=== PATIENT | female | born 1945 | race Caucasian/White ===

== ENCOUNTER → 2017-07-31 | Outpatient (CLI) | payer MEDICARE, BC | LOC: MC.RAD 10:17 | DX: Z12.31 Encounter for screening mammogram for malignant neoplasm of breast (principal) ==

== ENCOUNTER → 2018-08-10 | Outpatient (CLI) | payer MEDICARE, BC | LOC: MC.RAD 07:20 | DX: Z12.31 Encounter for screening mammogram for malignant neoplasm of breast (principal) ==

== ENCOUNTER → 2019-10-12 | Outpatient (CLI) | payer MEDICARE, BC | LOC: MC.RAD 08:54 | DX: Z12.31 Encounter for screening mammogram for malignant neoplasm of breast (principal) ==

== ENCOUNTER → 2020-08-07 | Outpatient (CLI) | payer MEDICARE, BC | LOC: COL.RAD 09:02 | DX: M25.552 Pain in left hip (principal) | CPT/HCPCS: J3301; Q9967 ==

== ENCOUNTER → 2020-10-13 | Outpatient (CLI) | payer MEDICARE, BC | LOC: MC.RAD 09:27 | DX: Z12.31 Encounter for screening mammogram for malignant neoplasm of breast (principal) ==

== ENCOUNTER → 2021-07-19 | Outpatient (CLI) | payer MEDICARE, BC | LOC: COL.RAD 09:44 | DX: N28.1 Cyst of kidney, acquired (principal); R16.0 Hepatomegaly, not elsewhere classified ==

== ENCOUNTER → 2021-10-15 | Outpatient (CLI) | payer MEDICARE, BC | LOC: MC.RAD 13:39 | DX: Z12.31 Encounter for screening mammogram for malignant neoplasm of breast (principal) ==

== ENCOUNTER → 2021-11-14 | Outpatient (CLI) | payer MEDICARE, BC | LOC: COL.RAD 12:48 | DX: M76.32 Iliotibial band syndrome, left leg (principal) | CPT/HCPCS: J3301; Q9967 ==

== ENCOUNTER → 2023-07-15 | Outpatient (CLI) | payer MEDICARE, BC | LOC: MHCPAIN 10:34 | DX: M54.50 Low back pain, unspecified (principal); M79.652 Pain in left thigh; Z96.642 Presence of left artificial hip joint; M25.512 Pain in left shoulder; M79.2 Neuralgia and neuritis, unspecified | CPT/HCPCS: G0463 ==

== ENCOUNTER → 2023-07-16 | Outpatient (CLI) | payer MEDICARE, BC | LOC: COL.RAD 14:09 | DX: M47.816 Spondylosis without myelopathy or radiculopathy, lumbar region (principal); M43.16 Spondylolisthesis, lumbar region ==

== ENCOUNTER → 2023-08-26 | Outpatient (CLI) | payer MEDICARE, BC | LOC: MHCPAIN 13:58 | DX: M54.50 Low back pain, unspecified (principal); M51.36 Other intervertebral disc degeneration, lumbar region; M47.816 Spondylosis without myelopathy or radiculopathy, lumbar region; M79.652 Pain in left thigh; M25.512 Pain in left shoulder; M79.2 Neuralgia and neuritis, unspecified | CPT/HCPCS: G0463 ==

== ENCOUNTER → 2023-11-27 | Outpatient (CLI) | payer MEDICARE, BC ==
[~2023-11-27] MED LIST: Iohexol 300 - 10 ML VIAL ONE; Lidocaine PF 2% (20 MG/ML) 2 ML VIAL ONE
== END ==
LOC: MHCPAIN 08:19
DX: M54.16 Radiculopathy, lumbar region (principal); G89.29 Other chronic pain
CPT/HCPCS: J1100; Q9967

== ENCOUNTER → 2023-12-15 | Outpatient (CLI) | payer MEDICARE, BC | LOC: MHCPAIN 12:45 | DX: M54.50 Low back pain, unspecified (principal); M25.552 Pain in left hip; Z96.642 Presence of left artificial hip joint | CPT/HCPCS: G0463 ==

== ENCOUNTER → 2024-02-19 | Outpatient (CLI) | payer MEDICARE, BC ==
[~2024-02-19] MED LIST changes: -Iohexol 300 - 10 ML VIAL ONE; +Lidocaine PF 1% (10 MG/ML) 5 ML VIAL ONE; -Lidocaine PF 2% (20 MG/ML) 2 ML VIAL ONE; +Triamcinolone 40 MG/ML 1 ML VIAL ONE
== END ==
LOC: MHCPAIN 11:43
DX: M76.12 Psoas tendinitis, left hip (principal)
CPT/HCPCS: J3301

== ENCOUNTER → 2024-04-20 | Outpatient (CLI) | payer MEDICARE, BC | LOC: MHCPAIN 14:16 | DX: M54.50 Low back pain, unspecified (principal); M47.816 Spondylosis without myelopathy or radiculopathy, lumbar region; M76.12 Psoas tendinitis, left hip; Z96.642 Presence of left artificial hip joint | CPT/HCPCS: G0463 ==

== ENCOUNTER → 2024-06-21 | Outpatient (CLI) | payer MEDICARE, BC | LOC: MHCPAIN 12:48 | DX: M47.816 Spondylosis without myelopathy or radiculopathy, lumbar region (principal); M54.50 Low back pain, unspecified | CPT/HCPCS: J0665 ==